=== PATIENT | female | born 1985 | race African-American/Black ===

== ENCOUNTER 2020-12-14 16:47 | Inpatient (IN) | payer OTHER ==
[2020-12-14 16:57] VITALS: BMI 28.4
[2020-12-14 18:49] LABS: BASO % 3.8 % (0-2.0); EOS % 6.4 % (0-4.5); HEMATOCRIT 25.4 % (32.4-45.2); HEMOGLOBIN 7.5 GM/dL (10.7-15.3); LYMPH % 24.5 % (8-40); MCHC 29.6 g/dl (32.0-36.0); MEAN CELL VOLUME 60.9 fl (80-96); MEAN PLT VOLUME 9.9 fl (7.5-11.1); MONO % 9.4 % (3.8-10.2); NEUT % 55.9 % (42.8-82.8); PLATELET COUNT 153 K/MM3 (134-434); RBC 4.17 M/mm3 (3.60-5.2); RDW 20.7 % (11.6-15.6); WHITE BLOOD COUNT 3.9 K/mm3 (4.0-10.0)
[2020-12-14 19:00] LABS: EPI CELLS 8 /uL (0-25.1); HYALINE CASTS 0 /uL (0-3.1); URINE APPEARANCE CLEAR; URINE BACTERIA 119 /uL (0-1359); URINE BILIRUBIN NEGATIVE (NEGATIVE); URINE COLOR YELLOW; URINE GLUCOSE (UA) NEGATIVE (NEGATIVE); URINE KETONE NEGATIVE (NEGATIVE); URINE LEUK ESTERASE TRACE (NEGATIVE); URINE NITRITE NEGATIVE (NEGATIVE); URINE PROTEIN NEGATIVE (NEGATIVE); URINE RBC 2 /uL (0-23.9); URINE WBC 14 /uL (0-25.8)
[2020-12-14 19:10] LABS: CALCIUM 9.1 mg/dL (8.5-10.1)
[2020-12-14 19:11] LABS: BLOOD UREA NITROGEN 13.1 mg/dL (7-18)
[2020-12-14 19:14] LABS: CREATININE 0.6 mg/dL (0.55-1.3)
[2020-12-14 20:23] LABS: ANISOCYTOSIS 2+; MACROCYTOSIS 0; PLATELET ESTIMATE NORMAL; TARGET CELLS 2+; TEAR DROP CELLS 1+
[2020-12-14] MEDS ORDERED: PROPOFOL 20 ML ONE (23:47)
[2020-12-14] MEDS ORDERED: MIDAZOLAM HCL 2 MG/2 ML SINGLE DOSE VIAL ONE (23:48)
[2020-12-14] MEDS ORDERED: SUCCINYLCHOLINE CHLORIDE 200 MG/10 ML SYRINGE ONE (23:48)
[2020-12-15] MEDS ORDERED: DEXAMETHASONE SOD PHOSPHATE 4 MG/1 ML VIAL ONE (00:16)
[2020-12-15] MEDS ORDERED: ONDANSETRON 4 MG/2 ML VIAL ONE ×2 (00:16→02:25)
[2020-12-15] MEDS ORDERED: ceFAZolin SODIUM 1 GM VIAL IVPB ONE (00:16)
[2020-12-15] MEDS ORDERED: ceFAZolin SODIUM 1 GM VIAL ONE (00:16)
[2020-12-15] MEDS ORDERED: HYDROmorphone HCl 2 MG/ML VIAL ONE (00:23)
[2020-12-15] MEDS ORDERED: BUPIVACAINE HCL 50 ML ONE (00:56)
[2020-12-15] MEDS ORDERED: BUPIVACAINE HCL/PF 0.5% (5MG/ML) 10 ML VIAL IJ ONE (01:03)
[2020-12-15] MEDS ORDERED: KETOROLAC TROMETHAMINE 30 MG/1 ML VIAL ONE (01:04)
[2020-12-15] MEDS ORDERED: ACETAMINOPHEN 1000 MG/100 ML VIAL (NON FORMULARY) IVPB PRN (01:21)
[2020-12-15] MEDS ORDERED: ACETAMINOPHEN 325 MG TABLET (FP) PO PRN (01:23)
[2020-12-15] MEDS ORDERED: ONDANSETRON 4 MG/2 ML VIAL IVPUSH PRN (01:31)
[2020-12-15] MEDS ORDERED: ACETAMINOPHEN INJECTION 100 ML IVPB ONE (02:13)
[2020-12-15] MEDS: LACTATED RINGERS SOLUTION 1,000 ML IV SCH (02:56)
[2020-12-15] MEDS: oxyCODONE HCL 5 MG TABLET PO PRN ×2 (02:57→08:28)
[2020-12-15] MEDS: SODIUM CHLORIDE 1,000 ML IV SCH (03:18)
[2020-12-15] MEDS: DEXTROSE 5%-LACTATED RINGERS 1,000 ML IV SCH (03:18)
[2020-12-15] MEDS: IBUPROFEN 600 MG TABLET (FP) PO PRN ×3 (05:40→15:35)
[2020-12-15 10:17] LABS: BASO % 0.1 % (0-2.0); EOS % 0.1 % (0-4.5); HEMATOCRIT 21.4 % (32.4-45.2); LYMPH % 1.6 % (8-40); MCHC 30.8 g/dl (32.0-36.0); MEAN CELL VOLUME 64.5 fl (80-96); MEAN PLT VOLUME 9.9 fl (7.5-11.1); NEUT % 95.2 % (42.8-82.8); PLATELET COUNT 109 K/MM3 (134-434); RBC 3.32 M/mm3 (3.60-5.2); RDW 23.4 % (11.6-15.6); WHITE BLOOD COUNT 9.7 K/mm3 (4.0-10.0)
[2020-12-15 10:23] LABS: MCH 19.8 pg (25.7-33.7)
[2020-12-15 10:24] LABS: HEMOGLOBIN 6.6 GM/dL (10.7-15.3)
[2020-12-15 11:24] LABS: ANISOCYTOSIS 1+; MACROCYTOSIS 0; PLATELET ESTIMATE DECREASED; TARGET CELLS 1+
[2020-12-15 17:26] LABS: HEMATOCRIT 24.3 % (32.4-45.2); HEMOGLOBIN 7.6 GM/dL (10.7-15.3); MCHC 31.2 g/dl (32.0-36.0); MEAN CELL VOLUME 67.3 fl (80-96); MEAN PLT VOLUME 10.2 fl (7.5-11.1); RBC 3.62 M/mm3 (3.60-5.2); RDW 25.2 % (11.6-15.6); WHITE BLOOD COUNT 9.9 K/mm3 (4.0-10.0)
[2020-12-15 18:06] LABS: PLATELET COUNT 102 K/MM3 (134-434)
[2020-12-15] MEDS ORDERED: IBUPROFEN 800 MG/8 ML IJ IVPB PRN (23:30)
[2020-12-16] MEDS ORDERED: MELATONIN 5 MG TABLETS PO ONE (00:40)
[2020-12-16] MEDS: SODIUM CHLORIDE 1,000 ML IV SCH (02:21)
[2020-12-16] MEDS: DEXTROSE 5%-LACTATED RINGERS 1,000 ML IV SCH (02:22)
[2020-12-16] MEDS: LACTATED RINGERS SOLUTION 1,000 ML IV SCH (02:22)
[2020-12-16 08:33] LABS: EOS % 0.5 % (0-4.5); HEMATOCRIT 24.8 % (32.4-45.2); HEMOGLOBIN 7.8 GM/dL (10.7-15.3); LYMPH % 22.8 % (8-40); MCH 21.8 pg (25.7-33.7); MCHC 31.5 g/dl (32.0-36.0); MEAN CELL VOLUME 69.1 fl (80-96); MEAN PLT VOLUME 10.2 fl (7.5-11.1); MONO % 8.2 % (3.8-10.2); NEUT % 67.5 % (42.8-82.8); PLATELET COUNT 82 K/MM3 (134-434); RBC 3.59 M/mm3 (3.60-5.2); RDW 26.3 % (11.6-15.6); WHITE BLOOD COUNT 7.7 K/mm3 (4.0-10.0)
[2020-12-16] MEDS ORDERED: traMADol HCL 50 MG TABLET PO PRN (11:23)
[2020-12-16 11:28] LABS: PLATELET ESTIMATE DECREASED
[2020-12-16 12:06] LABS: INR 1.05 (0.83-1.09); PROTHROMBIN TIME (PATIENT) 12.7 SEC (9.7-13.0)
[2020-12-16 12:09] LABS: ACTIVATED PTT 21.6 SECONDS (25.2-36.5)
[2020-12-16] MEDS ORDERED: FERRIC CARBOXYMALTOSE 750 MG in SODIUM CHLORIDE 250 ML IVPB ONE (13:00)
[2020-12-16 16:09] VITALS: BP 113/62; PULSE 64; TEMP 98.4
== END 2020-12-16 19:07 | disposition home or self-care (01) | DRG 545 ==
LOC: JER 16:47 → JASU-SURG 21:51 → J8W 12-15 02:45 → JASU-SURG 12-15 16:49 → J8W 12-15 16:50
PROVIDERS: ADMIT Obstetrics & Gynecology; ATTEND Obstetrics & Gynecology
PROC: 10D27ZZ Extraction of Products of Conception, Ectopic, Via Natural or Artificial Opening (ICD-10-PCS; principal; 2020-12-15)
PROC: 10D24ZZ Extraction of Products of Conception, Ectopic, Percutaneous Endoscopic Approach (ICD-10-PCS; 2020-12-15)
PROC: 0UT64ZZ Resection of Left Fallopian Tube, Percutaneous Endoscopic Approach (ICD-10-PCS; 2020-12-15)
DX: O00.102 Left tubal pregnancy without intrauterine pregnancy (principal); D50.0 Iron deficiency anemia secondary to blood loss (chronic); D69.6 Thrombocytopenia, unspecified; N92.0 Excessive and frequent menstruation with regular cycle
CPT/HCPCS: 36415; 36430; 76705-TC; 76817-TC; 80048; 81003; 82728; 83540; 83550; 84702; 85025; 85027; 85379; 85384; 85610; 85730; 86850; 86900; 86901; 86922; 87086; 87491; 87591; 93970-TC; 94760; 99285-25; C9803; J0131; J1439; P9058; U0003; U0005